=== PATIENT | female | born 1935 | race Two or more races ===

== ENCOUNTER 2024-05-12 11:20 | Inpatient (IN) | payer MEDICARE, OTHER ==
[~2024-05-12] VITALS: Ht 149.9 cm; Wt 68.0 kg
[2024-05-12 13:55] LABS: CALCIUM, SERUM 8.8 mg/dL (8.5-10.1); CREATININE 0.7 mg/dL (0.6-1.3); POTASSIUM 3.8 mmol/L (3.5-5.1)
[2024-05-12 13:56] LABS: BASOPHILS % (AUTO) 0.5 % (0.0-2.0); EOSINOPHILS # (AUTO) 0.2 K/uL (0.0-0.7); EOSINOPHILS % (AUTO) 3.4 % (0.0-6.0); HEMATOCRIT 34 % (33-45); HEMOGLOBIN 11.5 g/dL (11.5-14.8); MEAN CORPUSCULAR HEMOGLOBIN 30 PG (26.0-33.0); MEAN CORPUSCULAR HGB CONC 34 g/dl (31.0-36.0); MEAN CORPUSCULAR VOLUME 87 fL (82-100); MONOCYTES # (AUTO) 0.4 K/uL (0.1-1.30); MONOCYTES % (AUTO) 8.9 % (2.0-12.0); NEUTROPHILS # (AUTO) 3.2 K/uL (1.8-8.9); NEUTROPHILS % (AUTO) 66.2 % (43.0-81.0); PLATELET COUNT (AUTO) 168 K/uL (150-450); RED BLOOD CELL COUNT(AUTO) 3.88 MIL/uL (4.0-5.2); RED CELL DISTRIBUTION WIDTH 14.2 % (11.5-15.0); WHITE BLOOD COUNT (AUTO) 4.9 K/uL (4.3-11.0)
[2024-05-12] MEDS ORDERED: HYDR-3980 PO (14:45)
[2024-05-12] MEDS ORDERED: ONDANSETRON HCL/PF 4 MG/2 ML VIAL IVP PRN (16:30)
[2024-05-12] MEDS ORDERED: Z GUARD REMEDY 4 OZ OINT TP PRN (16:30)
[2024-05-12] MEDS ORDERED: MAG HYDROX/AL HYDROX/SIMETH 30 ML UDC PO PRN (16:30)
[2024-05-12] MEDS ORDERED: ENOXAPARIN SODIUM 30 MG/0.3 ML DISP.SYRIN ONE (16:53)
[2024-05-12] MEDS: ENOXAPARIN SODIUM 30 MG/0.3 ML DISP.SYRIN SQ SCH (16:54)
[2024-05-12 20:10] VITALS: BP 133/66; TEMP 98.4; O2SAT 97
[2024-05-12] MEDS ORDERED: ACETAMINOPHEN 325 MG TABLET ONE (20:15)
[2024-05-12] MEDS: ACETAMINOPHEN 325 MG TABLET PO PRN (20:18)
[2024-05-12 20:30] VITALS: BP 133/66; TEMP 98.7; O2SAT 97
[2024-05-12] MEDS: IV NS 0.9% 1,000 ML IV PRN (22:38)
[2024-05-13 07:13] LABS: BASOPHILS % (AUTO) 0.6 % (0.0-2.0); EOSINOPHILS # (AUTO) 0.2 K/uL (0.0-0.7); EOSINOPHILS % (AUTO) 3.8 % (0.0-6.0); HEMATOCRIT 31 % (33-45); HEMOGLOBIN 10.5 g/dL (11.5-14.8); LYMPHOCYTES % (AUTO) 26.3 % (20.0-44.0); MEAN CORPUSCULAR HEMOGLOBIN 30 PG (26.0-33.0); MEAN CORPUSCULAR HGB CONC 33 g/dl (31.0-36.0); MEAN CORPUSCULAR VOLUME 88 fL (82-100); MONOCYTES # (AUTO) 0.4 K/uL (0.1-1.30); MONOCYTES % (AUTO) 9.5 % (2.0-12.0); NEUTROPHILS # (AUTO) 2.4 K/uL (1.8-8.9); NEUTROPHILS % (AUTO) 59.8 % (43.0-81.0); PLATELET COUNT (AUTO) 143 K/uL (150-450); RED BLOOD CELL COUNT(AUTO) 3.54 MIL/uL (4.0-5.2); RED CELL DISTRIBUTION WIDTH 14.4 % (11.5-15.0); WHITE BLOOD COUNT (AUTO) 3.9 K/uL (4.3-11.0)
[2024-05-13 07:47] LABS: CALCIUM, SERUM 8.9 mg/dL (8.5-10.1); CREATININE 0.9 mg/dL (0.6-1.3); MAGNESIUM 1.8 mg/dL (1.8-2.4); PHOSPHORUS 2.9 mg/dL (2.5-4.9); POTASSIUM 3.7 mmol/L (3.5-5.1)
[2024-05-13 08:00] VITALS: BP 143/66; TEMP 97.9; O2SAT 98
[2024-05-13] MEDS: HYDROCODONE/APAP 5/325MG TABLET PO PRN (11:29)
[2024-05-13 13:47] LABS: THYROID STIMULATING HORMONE 1.63 uIU/mL (0.358-3.74)
[2024-05-13 16:00] VITALS: BP 139/68; TEMP 98; O2SAT 97
[2024-05-13 20:00] VITALS: BP_SYST 127; BP_SYST 139; BP_DIAS 52; BP_DIAS 59; TEMP 98.2; O2SAT 96; O2SAT 98
[2024-05-13] MEDS: SILVER NITRATE APPLICATOR 1 EA BOX TP ONE (20:00)
[2024-05-13] MEDS: LIDOCAINE 2%-EPI 1:100,000 30 ML VIAL TP ONE (20:00)
[2024-05-14 20:00] VITALS: BP 139/59; TEMP 98.2; O2SAT 98
[2024-05-15 08:11] LABS: FOLIC ACID 8.1 ng/mL (>3.0)
[2024-05-15 12:00] VITALS: BP 109/72; TEMP 98.2; O2SAT 96
[2024-05-15] MEDS: MAGNESIUM HYDROXIDE 30 ML UDC PO PRN (15:27)
[2024-05-15] MEDS: BISACODYL SUPP (10 MG) 10 MG/SUPP.RECT SUPP.RECT RC PRN (15:48)
== END 2024-05-15 18:21 | DRG 640 ==
LOC: ER 11:27 → MED 19:50
PROVIDERS: ADMIT Internal Medicine; ATTEND Internal Medicine
PROC: 0HB5XZX Excision of Chest Skin, External Approach, Diagnostic (ICD-10-PCS; principal; 2024-05-14)
DX: E86.0 Dehydration (principal); G93.41 Metabolic encephalopathy; L98.8 Other specified disorders of the skin and subcutaneous tissue; E11.9 Type 2 diabetes mellitus without complications; L89.156 Pressure-induced deep tissue damage of sacral region; R79.89 Other specified abnormal findings of blood chemistry; L98.9 Disorder of the skin and subcutaneous tissue, unspecified
CPT/HCPCS: 36415; 70450-TC; 80048-TC; 82607-TC; 83735-TC; 83921; 84100-TC; 84425; 84443-TC; 85025-TC; 97110-TC; 97112-TC; 97530-TC; A4223; A6253; G0378; J1650; J3490; J7030